=== PATIENT | female | born 1930 | race Caucasian/White ===

== ENCOUNTER → 2017-07-19 | Outpatient (CLI) | payer OTHER | END | disposition home or self-care (01) | LOC: CFH 14:04 | PROVIDERS: ATTEND Internal Medicine | DX: Z13.820 Encounter for screening for osteoporosis (principal); M81.0 Age-related osteoporosis without current pathological fracture; N95.1 Menopausal and female climacteric states; M89.9 Disorder of bone, unspecified | CPT/HCPCS: 77080 ==